=== PATIENT | female | born 1940 | race Caucasian/White ===

== ENCOUNTER 2017-03-28 11:52 | Emergency (ER) | payer MEDICARE ==
[2017-03-28 14:38] LABS: BASOPHIL 0.1 % (0-2); EOSINOPHIL 1.6 % (0-7); HCT 42.7 % (37.0-47.0); HGB 14.2 g/dl (12.5-16.0); LYMPHOCYTE 28.2 % (15-48); MCH 28.5 pg (25.0-31.0); MCHC 33.3 g/dL (32.0-36.0); MCV 85.6 fL (78.0-100.0); MONOCYTE 8.8 % (0-12); MPV 10.1 fL (6.0-9.5); NEUTROPHIL 61.3 % (41-80); PLT 209 K/uL (150-400); RBC 4.99 M/uL (4.20-5.40); RDW 13.9 % (11.5-14.0); WBC 7.9 K/uL (4.0-10.5)
[2017-03-28 15:04] LABS: CREATININE 0.8 mg/dL (0.5-1.0); POTASSIUM 4.2 mmol/L (3.5-5.1)
== END 2017-03-28 15:47 | disposition home or self-care (01) ==
LOC: FER 11:52
PROVIDERS: Internal Medicine
DX: I10 Essential (primary) hypertension (principal); Z88.0 Allergy status to penicillin; Z88.1 Allergy status to other antibiotic agents; Z88.2 Allergy status to sulfonamides; Z88.8 Allergy status to other drugs, medicaments and biological substances
CPT/HCPCS: 36415; 71020; 80048; 84484; 85025; 93005